=== PATIENT | male | born 1955 | race Caucasian/White ===

== ENCOUNTER 2018-08-11 13:33 | Observation (INO) ==
[2018-08-11] MEDS ORDERED: Naloxone 0.4 MG/ML INJ IVP PRN (17:14)
[2018-08-11] MEDS ORDERED: Acetaminophen 325 MG TABLET PO PRN (17:14)
[2018-08-11] MEDS ORDERED: traMADol 50 MG TABLET PO PRN (17:14)
[2018-08-11 17:35] LABS: Basophils # 0.1 K/mcL (0.0-0.2); Basophils % 1.1 %; Eosinophils # 0.4 K/mcL (0.0-0.6); Eosinophils % 4.9 %; Hematocrit 41.9 % (37.5-50.1); Hemoglobin 13.5 g/dL (12.9-16.9); Immature Granulocytes % 0.3 % (0-4); Lymphocytes # 1.8 K/mcL (0.6-4.6); Lymphocytes % 24.1 %; Mean Corpuscular HGB Conc 32.2 g/dL (31.6-35.5); Mean Corpuscular Hemoglobin 27.7 pg (28.0-33.3); Mean Platelet Volume 10.3 fL (9.4-12.4); Monocytes # 0.6 K/mcL (0.0-1.3); Monocytes % 8.4 %; Neutrophils # 4.6 K/mcL (1.6-8.9); Platelet Count 251 K/mcL (140-400); Red Blood Count 4.87 M/mcL (4.19-5.50); Red Cell Distribution Width 14.4 % (11.5-14.5); Segmented Neutrophils % 61.2 %
[2018-08-11] MEDS ORDERED: Ipratropium/Albuterol Neb 3 ML IH PRN (17:38)
--- NOTE | 2018-08-11 17:43 | Internal Med History&Physical ---
<TinoalirezabeboJose rollins - Last Filed: 08/11/18 18:17> Date of Encounter: 08/11/18 Time of Encounter: 16:30 Internal Medicine - H&P: HPI Chief complaint: CP Admitted From: Hospital to Hospital Transfer Plans for Post Hospital Care: Home History of present illness: Mr. Klein is a 63 year old male w/PMH of HTN, HLD, gout, GERD, and COPD presents from [facility] with chief complaint of chest pain. Patient reports began at 5 AM this morning while he was sleeping and presented as centralized chest pressure with radiation to bilateral shoulders. No aggravating factors. Pt. states nitro helped sx. Patient reports previous DE in 2008 with no stents placed. Patient states symptoms today are different from 2009 DE he has today's CP is pressure whereas 2009 sx was sharp and stabbing pain. Echocardiogram on 10/25/17 showed LVEF of 60%, normal LV chamber size and function, mild concentric left ventricular hypertrophy, sooner normal left ventricular diastolic dysfunction, unable to estimated RVSP due to lack of TR jet, and no significant valvular dysfunction. Pt. reports previous nuclear stress test was many years ago. Former smoker who smoked 1.5 PPD and quit 10 years ago. Patient reports SOB (pt. has COPD) but denies recent illness, fever , chills, nausea, vomiting, diaphoresis, changes in vision, headache, unusual bleeding, cough, chest congestion, abdominal pain, diarrhea, constipation, dizziness, lightheadedness, numbness, tingling, pre-syncope, or syncope. Past Med Surg Social Fam HX - Past Medical History Source: patient, old records reviewed Medical history: COPD, GERD, hyperlipidemia, hypertension, other (Gout) Psychiatric history: no psych history - Past Surgical History Additional surgical history: Cyst removed from back. Tonsillectomy. - Social History Smoking Status: Former smoker Packs per day: 1.5 PPD - Reports quitting 10 years ago Smokeless Tobacco Status: No Alcohol use: none Drug use: none Current living situation: Home, With Family Activity Level: Independent ambulation Recent Out of Country Travel Within the Last 8 Weeks: No Exposure or Possible Exposure to Illness During Travel: No - Family History Mother Race: Family Member Ethnicity: Non- Living Status: Age at : 61 Cause of : "Natural causes" Hx Family Cardiac Disorders: Yes (DE, Open heart surgery) Hx Family Endocrine Disorder: Yes (DM) Father History Unknown: Yes Race: Family Member Ethnicity: Non- Living Status: Brother Race: Family Member Ethnicity: Non- Living Status: Still Living Hx Family Medical Disorders: No Sister Race: Family Member Ethnicity: Non- Living Status: Still Living Hx Family Endocrine Disorder: Yes (DM) Hx Family HEENT Disorders: Yes (Glaucoma) Internal Medicine - H&P: Meds 3 Allergy/AdvReac Type Severity Reaction Status Date / Time acetaminophen [From Vicodin] Allergy Hives Verified 07/20/16 10:05 atorvastatin [From Lipitor] Allergy Rash Verified 07/20/16 10:05 codeine Allergy Hives Verified 07/20/16 10:05 diphenhydramine Allergy Difficulty Verified 07/20/16 10:05 [From Benadryl] Breathing hydrocodone [From Vicodin] Allergy Hives Verified 07/20/16 10:05 morphine Allergy Difficulty Verified 07/20/16 10:05 Breathing Penicillins Allergy Unconscious Verified 07/20/16 10:05 All Systems PM: A 10-system review of systems was performed and is negative for pertinent findings except as documented above in the HPI. - Constitutional Constitutional: no chills, no fever(s), no night sweats - EENT Eyes: no change in vision, no discharge, no pain, no photophobia Ears: no ear discharge, no ear pain, no tinnitus Nose, mouth and throat: no dysphagia, no nasal discharge, no neck pain, no sore throat - Breasts Breasts: as per HPI - Cardiovascular Cardiovascular ROS IM: as per HPI, chest pain, dyspnea, dyspnea on exertion, edema (Occasional bilateral pedal edema), no diaphoresis, no lightheadedness, no palpitations, no syncope - Respiratory Respiratory: as per HPI, dyspnea, dyspnea on exertion, no cough, no wheezing, no excessive phlegm production - Gastrointestinal Gastrointestinal: no abdominal pain, no diarrhea, no hematemesis, no hematochezia, no melena, no nausea, no vomiting - Genitourinary Genitourinary ROS male: as per HPI - Musculoskeletal Musculoskeletal ROS IM: no numbness, no tingling - Integumentary Integumentary IM: no rash, no unusual bruising - Neurological Neurological ROS: no confusion, no convulsions, no focal weakness, no numbness, no tingling, no tremor(s) - Psychiatric Psychiatric: as per HPI - Endocrine Endocrine IM: as per HPI - Hematologic/Lymphatic Hematologic/Lymphatic: no easy bruising - Allergic/Immunologic Allergic/Immunologic: as per HPI - Constitutional Vitals: Temp Pulse Resp BP Pulse Ox 97.9 F 60 17 146/88 97 08/11/18 16:47 08/11/18 16:47 08/11/18 16:47 08/11/18 16:47 08/11/18 16:47 General appearance: Present: cooperative, mild distress (CP that pt. rates 3/10) , A&O X 3, pleasant, obese, answers questions appropriately Exam: Pt. examined at bedside. Pt. resting comfortably in bed stating CP 3/10 w/ improvement from nitro patch. Reports SOB and hx of COPD. Pt. states he had DE in 2008 w/o stent placement. Last Echo in 09/2017. Previous stress test many years ago according to pt. Denies other sx or complaints at this time. VS: temp 97.9F, HR 60, RR 17, BP 146/88, SpO2 97% on 2L via NC. - Head Head exam: Present: atraumatic, normocephalic - Eye Eye exam: Present: PERRL, conjuntiva pink, sclera anicteric Pupils: Present: PERRL - ENT ENT exam: Present: normal exam - Neck Neck exam general surgery: Present: normal inspection, supple, trachea midline. Absent: lymphadenopathy - Respiratory Respiratory exam: Present: CTAB. Absent: accessory muscle use, rales, rhonchi, wheezes - Cardiovascular Cardiovascular exam: Present: RRR, +S1, +S2. Absent: diastolic murmur, gallop, rubs, systolic murmur - GI/Abdominal GI/Abdominal exam: Present: normal bowel sounds, soft, no peritoneal signs. Absent: distended, tenderness - Rectal Rectal exam: Present: deferred - Additional comments: exam deferred. - Extremities Exam Extremities exam: Present: warm, radial pulses palpable and symmetrical. Absent : calf tenderness, cyanotic, pedal edema - Back Exam Back exam: Present: normal inspection - Neurological Exam Neurological exam: Present: alert, CN II-XII intact, oriented X3, no focal deficits. Absent: pronater drift, facial droop, speech deficit - Psychiatric Psychiatric exam: Present: normal affect, normal mood - Skin Skin exam: Present: dry, intact Internal Med - H&P Results - Labs CBC & Chem 7: 08/11/18 16:47 08/11/18 16:47 Labs: Short CBC 08/11/18 Range/Units 16:47 WBC 7.5 (4.3-11.1) K/mcL Hgb 13.5 (12.9-16.9) g/dL Hct 41.9 (37.5-50.1) % Plt Count 251 (140-400) K/mcL Neutrophils # 4.6 (1.6-8.9) K/mcL - EKG Data EKG shows normal: sinus rhythm Rate: bradycardia - EKG Data Prior EKG available for review: no EKG comments: 08/11/18 17:49 EKG dated 08/11/18 at [facility] shows sinus bradycardia and otherwise normal ECG. - Assessment and plan (1) Chest pain Current Visit: Yes Status: Acute Assessment and plan: Acute CP that patient reports began at 5 AM this morning while he was sleeping and presented as centralized chest pressure with radiation to bilateral shoulders. No aggravating factors. Pt. states nitro helped sx. Patient reports previous DE in 2008 with no stents placed. Patient states symptoms today are different from 2009 DE he has today's CP is pressure whereas 2009 sx was sharp and stabbing pain. Echocardiogram on 10/25/17 showed LVEF of 60%, normal LV chamber size and function, mild concentric left ventricular hypertrophy, sooner normal left ventricular diastolic dysfunction, unable to estimated RVSP due to lack of TR jet, and no significant valvular dysfunction. Pt. reports previous nuclear stress test was many years ago. Former smoker who smoked 1.5 PPD and quit 10 years ago. Initial troponin <0.03. Will trend. ASA. 40 mg Lovastatin NOW. Nitro PRN. Continuous cardiac telemetry. Limited Echocardiogram d/t pt. having Echo in 10/12. Cardiac diet w/NPO at midnight for a.m. nuclear pharm stress test if troponins remain WNL. 1V portable CXR ordered. Continue pts. HTN medications and IP hydralazine w/parameters ordered. Consider Cardiology consult if limited Echo, troponins, and/or stress test results abnormal. Pt. discussed w/Dr. Dickinson who agrees w/plan of care. Pt. is high risk for cardiac event and further morbidity d/t previous DE in 2009, current sx of CP that began at rest, hx of tobacco abuse, familial hx; and risk factors of HTN, HLD, and obesity. Observation. Qualifiers: Chest pain type: other chest pain Qualified Code(s): R07.89 - Other chest pain; R07.8 - Other chest pain (2) SOB (shortness of breath) Current Visit: Yes Status: Acute Assessment and plan: Acute SOB w/CP sx. Continue pts. inhalers. Add DuoNebs Q6HR PRN. Supplemental O2 w/titration and SpO2 monitoring. (3) COPD (chronic obstructive pulmonary disease) Current Visit: Yes Status: Chronic Assessment and plan: Hx of chronic COPD. Pt. reports SOB w/CP sx. Continue pts. inhalers. Add DuoNebs Q6HR PRN. Supplemental O2 w/titration and SpO2 monitoring. Qualifiers: COPD type: emphysema Emphysema type: unspecified Qualified Code(s): J43.9 - Emphysema, unspecified (4) HTN (hypertension) Current Visit: Yes Status: Chronic Assessment and plan: Hx of chronic HTN. Monitor pt. and VS. Continue pts. PO HTN medications. IVP hydralazine ordered w/parameters for breakthrough HTN. Qualifiers: Hypertension type: essential hypertension Qualified Code(s): I10 - Essential (primary) hypertension (5) HLD (hyperlipidemia) Current Visit: Yes Status: Chronic Assessment and plan: Hx of chronic HLD. Lipid panel in a.m. labs. Continue pts. Lovastatin. Qualifiers: Hyperlipidemia type: pure hypercholesterolemia Qualified Code(s): E78.00 - Pure hypercholesterolemia, unspecified; E78.0 - Pure hypercholesterolemia (6) Gout Current Visit: Yes Status: Chronic Assessment and plan: Hx of chronic gout. Continue pts. Allopurinol. Qualifiers: Gout site: unspecified site Gout etiology: unspecified cause Chronicity: chronic Presence of tophus: without tophus Qualified Code(s): M1A.9XX0 - Chronic gout, unspecified, without tophus (tophi) (7) GERD (gastroesophageal reflux disease) Current Visit: Yes Status: Chronic Assessment and plan: Hx of chronic GERD. Continue pts. PO medication. IVP Zofran for N/V. Qualifiers: Esophagitis presence: esophagitis presence not specified Qualified Code(s) : K21.9 - Gastro-esophageal reflux disease without esophagitis (8) DVT prophylaxis Current Visit: Yes Status: Acute Assessment and plan: Heparin SQ Q8HR for DVT prophylaxis. Monitor pt. for signs of bleeding. (9) Previous myocardial infarction older than 8 weeks Current Visit: Yes Status: Resolved Assessment and plan: Hx of previous DE in 2008 w/o stent placement. Resolved. Pt. states current CP different from 2008 because 2008 was sharp/stabbing and today presents as pressure. Continuous cardiac telemetry. ASA therapy. Continue HTN and HLD medications. - Time Spent With Patient Total time spent is greater than 50% in coordination of care (as documented) at patient's floor/unit and/or counseling patient: Greater than 35 minutes <Anjel Dickinson - Last Filed: 08/12/18 15:13> Date of Encounter: 08/12/18 Internal Medicine - H&P: HPI History of present illness: Mr. Klein is a 63 year old male All Systems PM: A 10-system review of systems was performed and is negative for pertinent findings except as documented above in the HPI. - Constitutional Vitals: Temp Pulse Resp BP Pulse Ox 97.7 F 54 18 132/83 95 08/12/18 11:42 08/12/18 11:42 08/12/18 11:42 08/12/18 11:42 08/12/18 11:42 Internal Med - H&P Results - Labs CBC & Chem 7: 08/12/18 06:49 08/12/18 06:49 Labs: Short CBC 08/11/18 08/12/18 Range/Units 16:47 06:49 WBC 7.5 7.6 (4.3-11.1) K/mcL Hgb 13.5 14.2 (12.9-16.9) g/dL Hct 41.9 43.3 (37.5-50.1) % Plt Count 251 234 (140-400) K/mcL Neutrophils # 4.6 3.8 (1.6-8.9) K/mcL BMP 08/11/18 08/12/18 16:47 06:49 Sodium 138 138 Potassium 3.9 3.9 Chloride 106 105 Carbon Dioxide 22 L 27 BUN 23 22 Creatinine 0.92 0.94 Glucose 93 95 Calcium 9.3 9.1 Cardiac Enzymes 08/11/18 08/11/18 08/12/18 Range/Units 16:47 22:56 06:49 Troponin I < 0.03 < 0.03 < 0.03 (< 0.04) ng/mL Liver Function 08/11/18 08/12/18 Range/Units 16:47 06:49 Total Bilirubin 0.6 0.5 (0.3-1.0) mg/dL AST 15 13 (13-39) Units/L ALT 14 13 (7-52) Units/L Alkaline Phosphatase 57 54 (34-104) Units/L Albumin 4.3 4.0 (3.5-5.7) g/dL - Impressions ITS Impressions Chest X-Ray 08/11/18 17:18 IMPRESSION: No acute cardiopulmonary process. D/ / 08/11/2018 20:56:35 Britt Mcclellan MD / armaan Interpreting Provider: Britt Mcclellan MD Echocardiogram Limited Views 08/12/18 07:00 Impressions: LVEF 60%. Normal LV chamber size and function. Left Ventricular Wall Motion: Rest Echo Findings All wall segments showed normal motion. Findings: Study Quality * Technically adequate exam. ECG Findings * Normal sinus rhythm. Left Ventricle * LVEF 60%. * Normal LV chamber size and function. Right Ventricle * Normal right ventricular structure and function. Aorta * Normally sized aortic root. Pericardium * The pericardium appears normal. - Assessment and plan (1) Chest pain Current Visit: Yes Status: Acute Qualifiers: Chest pain type: other chest pain Qualified Code(s): R07.89 - Other chest pain; R07.8 - Other chest pain (2) SOB (shortness of breath) Current Visit: Yes Status: Resolved (3) HTN (hypertension) Current Visit: Yes Status: Chronic Qualifiers: Hypertension type: essential hypertension Qualified Code(s): I10 - Essential (primary) hypertension (4) HLD (hyperlipidemia) Current Visit: Yes Status: Chronic Qualifiers: Hyperlipidemia type: pure hypercholesterolemia Qualified Code(s): E78.00 - Pure hypercholesterolemia, unspecified; E78.0 - Pure hypercholesterolemia (5) Gout Current Visit: Yes Status: Chronic Qualifiers: Gout site: unspecified site Gout etiology: unspecified cause Chronicity: chronic Presence of tophus: without tophus Qualified Code(s): M1A.9XX0 - Chronic gout, unspecified, without tophus (tophi) (6) GERD (gastroesophageal reflux disease) Current Visit: Yes Status: Chronic Qualifiers: Esophagitis presence: esophagitis presence not specified Qualified Code(s) : K21.9 - Gastro-esophageal reflux disease without esophagitis (7) COPD (chronic obstructive pulmonary disease) Current Visit: Yes Status: Chronic Qualifiers: COPD type: emphysema Emphysema type: unspecified Qualified Code(s): J43.9 - Emphysema, unspecified (8) DVT prophylaxis Current Visit: Yes Status: Acute (9) Previous myocardial infarction older than 8 weeks Current Visit: Yes Status: Resolved - Time Spent With Patient Total time spent is greater than 50% in coordination of care (as documented) at patient's floor/unit and/or counseling patient: - Attending Attestation Seen and assessed. Continue management for chest pain. Agree with plan per [employer]
[2018-08-11] MEDS ORDERED: GI Cocktail 40 ML EACH PO ONE (17:52)
[2018-08-11 17:56] LABS: Troponin I < 0.03 ng/mL (< 0.04)
[2018-08-11] MEDS ORDERED: Ondansetron 4 MG/2 ML VIAL IVP PRN (17:56)
[2018-08-11 17:57] LABS: Alanine Aminotransferase 14 Units/L (7-52); Albumin 4.3 g/dL (3.5-5.7); Albumin/Globulin Ratio 1.8 (1.1-2.2); Alkaline Phosphatase 57 Units/L (34-104); Aspartate Amino Transferase 15 Units/L (13-39); BUN/Creatinine Ratio 25 (6-26); Bilirubin,Total 0.6 mg/dL (0.3-1.0); Blood Urea Nitrogen 23 mg/dL (8-23); Calcium 9.3 mg/dL (8.6-10.3); Carbon Dioxide 22 mEq/L (23-29); Chloride 106 mEq/L (98-107); Globulin 2.4 g/dL (2.4-3.5); Glucose 93 mg/dL (70-105); Osmolality,Calculated 289 (280-300); Potassium 3.9 mEq/L (3.5-5.1); Sodium 138 mEq/L (136-145); Total Protein 6.7 g/dL (6.4-8.9); eGFR For Non-African Americans > 60 (> 60)
[2018-08-11 18:19] LABS: Thyroid Stimulating Hormone 0.683 mcIU/mL (0.340-5.600)
[2018-08-11] MEDS ORDERED: *HR* OxyCODONE/APAP 5/325 TABLET PO PRN (18:35)
[2018-08-11] MEDS: Gabapentin 300 MG CAPSULE PO SCH (21:00)
[2018-08-11] MEDS: *HR* Heparin 5,000 UNIT/ML VIAL SQ SCH (21:00)
[2018-08-11] MEDS ORDERED: Budesonide/Formoterol 80/4.5 MDI IH SCH (21:00)
[2018-08-11] MEDS: Budesonide/Formoterol 160/4.5 1 PUFF INH IH SCH (22:31)
[2018-08-12] MEDS ORDERED: Ipratropium Neb 0.5 MG NEBULIZER IH SCH
[2018-08-12] MEDS: *HR* Heparin 5,000 UNIT/ML VIAL SQ SCH (05:41)
[2018-08-12] MEDS ORDERED: Regadenoson 0.4 MG/5 ML SYRINGE IVP ONE (05:51)
[2018-08-12 07:23] LABS: Basophils # 0.1 K/mcL (0.0-0.2); Basophils % 1.1 %; Eosinophils # 0.6 K/mcL (0.0-0.6); Eosinophils % 8.2 %; Hematocrit 43.3 % (37.5-50.1); Hemoglobin 14.2 g/dL (12.9-16.9); Immature Granulocytes % 0.3 % (0-4); Lymphocytes # 2.4 K/mcL (0.6-4.6); Lymphocytes % 31.7 %; Mean Corpuscular HGB Conc 32.8 g/dL (31.6-35.5); Mean Corpuscular Hemoglobin 28.5 pg (28.0-33.3); Mean Corpuscular Volume 86.9 fL (83.0-100.0); Mean Platelet Volume 10.5 fL (9.4-12.4); Monocytes # 0.7 K/mcL (0.0-1.3); Monocytes % 9.5 %; Neutrophils # 3.8 K/mcL (1.6-8.9); Platelet Count 234 K/mcL (140-400); Red Blood Count 4.98 M/mcL (4.19-5.50); Red Cell Distribution Width 14.3 % (11.5-14.5); Segmented Neutrophils % 49.2 %
[2018-08-12 07:33] LABS: Estimated Average Glucose 120 mg/dl; Hemoglobin A1C 5.8 %
[2018-08-12 07:46] LABS: Alanine Aminotransferase 13 Units/L (7-52); Albumin/Globulin Ratio 1.7 (1.1-2.2); Alkaline Phosphatase 54 Units/L (34-104); Aspartate Amino Transferase 13 Units/L (13-39); BUN/Creatinine Ratio 23 (6-26); Bilirubin,Total 0.5 mg/dL (0.3-1.0); Blood Urea Nitrogen 22 mg/dL (8-23); Calcium 9.1 mg/dL (8.6-10.3); Carbon Dioxide 27 mEq/L (23-29); Chloride 105 mEq/L (98-107); Chol/HDL Ratio 2.9 (0-4.9); Cholesterol 109 mg/dL (< 200); Globulin 2.4 g/dL (2.4-3.5); Glucose 95 mg/dL (70-105); HDL Cholesterol 37 mg/dL (40-59); LDL Cholesterol,Calculated 51 mg/dL (0-99); Osmolality,Calculated 289 (280-300); Potassium 3.9 mEq/L (3.5-5.1); Sodium 138 mEq/L (136-145); Total Protein 6.4 g/dL (6.4-8.9); Triglycerides 107 mg/dL (< 150); eGFR For Non-African Americans > 60 (> 60)
[2018-08-12] MEDS ORDERED: Aspirin Enteric Coated 81 MG Tablet PO SCH (09:00)
[2018-08-12] MEDS ORDERED: Loratadine 10 MG TABLET PO SCH ×2 (09:00)
[2018-08-12] MEDS ORDERED: Famotidine 20 MG TABLET PO SCH (09:00)
[2018-08-12] MEDS: Gabapentin 300 MG CAPSULE PO SCH (09:03)
[2018-08-12] MEDS: Budesonide/Formoterol 160/4.5 1 PUFF INH IH SCH (11:12)
[2018-08-12 11:48] VITALS: BP 132/83
--- NOTE | 2018-08-12 12:52 | Discharge Summary ---
Orders not resulted at time of discharge: Pending orders 08/11/18 17:19 EKG [ECG 12 lead ECG] [ECG] Routine 08/11/18 18:06 NM riley perf SPECT multi [NM] Routine 08/13/18 04:00 Complete Blood Count [HEME] AM 0400 Comprehensive Metabolic Panel AM 0400 08/14/18 04:00 Complete Blood Count [HEME] AM 0400 Comprehensive Metabolic Panel AM 0400 Date of Encounter: 08/12/18 Time of Encounter: 10:35 - Discharge Diagnosis (1) Chest pain Priority: Primary Status: Acute Assessment and Plan: Pt reports some intermittent left chest pain without radiation, described as dull, no associated symptoms, rates 1/10. Chest pain is not reproducible. He denies recent illness or injury. Limited echo done today shows LVEF of 60% with normal LV chamber size and function. Stress test showed a gated EF of 60% with some findings consistent with artifact , perfusion imaging was negative for ischemia or infarct. Troponins negative 3. TSH within normal limits. Lipid panel within normal limits. A1c is 5.8%. Chest x-ray showed no acute cardiopulmonary process. EKG is without ischemic changes. national secretary is trying to get patient a follow-up appointment with cardiology. Unclear etiology for chest pain. Likely chest wall pain. Follow-up with cardiology as scheduled. 08/11-Acute CP that patient reports began at 5 AM this morning while he was sleeping and presented as centralized chest pressure with radiation to bilateral shoulders. No aggravating factors. Pt. states nitro helped sx. Patient reports previous [place] in 2008 with no stents placed. Patient states symptoms today are different from 2009 [place] he has today's CP is pressure whereas 2009 sx was sharp and stabbing pain. Echocardiogram on 10/25/17 showed LVEF of 60%, normal LV chamber size and function, mild concentric left ventricular hypertrophy, sooner normal left ventricular diastolic dysfunction, unable to estimated RVSP due to lack of TR jet, and no significant valvular dysfunction. Pt. reports previous nuclear stress test was many years ago. Former smoker who smoked 1.5 PPD and quit 10 years ago. Initial troponin <0.03. Will trend. ASA. 40 mg Lovastatin NOW. Nitro PRN. Continuous cardiac telemetry. Limited Echocardiogram d/t pt. having Echo in 10/12. Cardiac diet w/NPO at midnight for a.m. nuclear pharm stress test if troponins remain WNL. 1V portable CXR ordered. Continue pts. HTN medications and IP hydralazine w/parameters ordered. Consider Cardiology consult if limited Echo, troponins, and/or stress test results abnormal. Pt. discussed w/Dr. Dickinson who agrees w/plan of care. Pt. is high risk for cardiac event and further morbidity d/t previous [place] in 2009, current sx of CP that began at rest, hx of tobacco abuse, familial hx; and risk factors of HTN, HLD, and obesity. Observation. Qualifiers: Chest pain type: other chest pain Qualified Code(s): R07.89 - Other chest pain; R07.8 - Other chest pain (2) SOB (shortness of breath) Priority: Secondary Status: Resolved Assessment and Plan: Resolved. Continue home inhalers. He is not requiring any supplemental oxygen. Lungs are clear. (3) HTN (hypertension) Priority: Secondary Status: Chronic Assessment and Plan: Chronic. Well controlled. Continue medications. Qualifiers: Hypertension type: essential hypertension Qualified Code(s): I10 - Essential (primary) hypertension (4) HLD (hyperlipidemia) Priority: Secondary Status: Chronic Assessment and Plan: Lipid panel within normal limits. Continue lovastatin. Qualifiers: Hyperlipidemia type: pure hypercholesterolemia Qualified Code(s): E78.00 - Pure hypercholesterolemia, unspecified; E78.0 - Pure hypercholesterolemia (5) Gout Priority: Secondary Status: Chronic Assessment and Plan: Chronic. Continue allopurinol home dose. Qualifiers: Gout site: unspecified site Gout etiology: unspecified cause Chronicity: chronic Presence of tophus: without tophus Qualified Code(s): M1A.9XX0 - Chronic gout, unspecified, without tophus (tophi) (6) GERD (gastroesophageal reflux disease) Priority: Secondary Status: Chronic Assessment and Plan: Chronic. Continue home medications. Qualifiers: Esophagitis presence: esophagitis presence not specified Qualified Code(s) : K21.9 - Gastro-esophageal reflux disease without esophagitis (7) COPD (chronic obstructive pulmonary disease) Priority: Secondary Status: Chronic Assessment and Plan: No acute exacerbation. Chest x-ray is negative. Continue home medications. Patient is not requiring supplemental oxygen. Lungs are clear and diminished throughout. Qualifiers: COPD type: emphysema Emphysema type: unspecified Qualified Code(s): J43.9 - Emphysema, unspecified (8) DVT prophylaxis Priority: Secondary Status: Acute Assessment and Plan: Heparin subcutaneous (9) Previous myocardial infarction older than 8 weeks Priority: Secondary Status: Resolved Assessment and Plan: Prior [place] 2008 without stents. Continue home medications. Hospital course: Please see assessment and plan for hospital course. Discharge discussed with: patient, nurse - Time Spent with Patient Total time spent providing and/or coordinating discharge services: Less than 30 minutes - Discharge Medications Home Medications: Albuterol Sulfate [Proair Hfa] 1 puff IH Q4H PRN 08/11/18 [History] Allopurinol [Zyloprim 300 MG] 300 mg PO DAILY 08/11/18 [History] Budesonide/Formoterol 80/4.5 [Symbicort 80/4.5] 2 puff IH BID 08/11/18 [History ] Cetirizine HCl [Zyrtec] 10 mg PO DAILY 08/11/18 [History] Gabapentin [Neurontin] 600 mg PO TID 08/11/18 [History] Ipratropium Neb [Atrovent Neb] 0.5 mg IH Q6HR 08/11/18 [History] Loratadine [Claritin] 10 mg PO DAILY 08/11/18 [History] Lovastatin 80 mg PO DAILY 08/11/18 [History] Metoprolol [Lopressor] 25 mg PO BID 08/11/18 [History] Montelukast [Singulair] 10 mg PO DAILY 08/11/18 [History] Niacin (24 HR) [Niaspan] 500 mg PO HS 08/11/18 [History] Omeprazole [PriLOSEC] 40 mg PO DAILY 08/11/18 [History] Oxycodone HCl/Acetaminophen [Percocet 5-325 mg Tablet] 1 each PO Q8H PRN [History] Ranitidine HCl [Zantac] 300 mg PO DAILY 08/11/18 [History] Allergies/Adverse Reactions: 3 Allergy/AdvReac Type Severity Reaction Status Date / Time acetaminophen [From Vicodin] Allergy Hives Verified 07/20/16 10:05 atorvastatin [From Lipitor] Allergy Rash Verified 07/20/16 10:05 codeine Allergy Hives Verified 07/20/16 10:05 diphenhydramine Allergy Difficulty Verified 07/20/16 10:05 [From Benadryl] Breathing hydrocodone [From Vicodin] Allergy Hives Verified 07/20/16 10:05 morphine Allergy Difficulty Verified 07/20/16 10:05 Breathing Penicillins Allergy Unconscious Verified 07/20/16 10:05 Date of admission: 08/11/18 15:24 Primary care physician: Bela Lau CNP Consults: 08/11/18 17:17 Consult to Certified Hand Therapist [CONS] Routine Reason for SW Consult: Please assess patient for possible home needs for post -discharge planning. Discharging clinician: Jessica Chatman Anticipated date of discharge: 08/12/18 - Constitutional Vitals: Temp Pulse Resp BP Pulse Ox 97.7 F 54 18 132/83 95 08/12/18 11:42 08/12/18 11:42 08/12/18 11:42 08/12/18 11:42 08/12/18 11:42 General appearance: Present: cooperative, mild distress (CP that pt. rates 3/10) , A&O X 3, pleasant, obese, answers questions appropriately Exam: General: Pt resting quietly on bed, no distress. Skin: pwd, no rashes, lesions, redness Neurological: Pt is alert and awake, oriented x 3, Speech is clear, PERRLA, EOMI , no nystagmus, no pronator drift. strength equal x 4 extremities HEENT: mucous mumbranes moist, no conjuctival pallor Neck: supple, no tracheal deviation, no lymphadenopathy, tenderness, no thyromegaly Heart: S1S2 heard without gallops, clicks, murmurs, no bradycardia or tachycardia, pt has no peripheral edema, pedal and radial pulses palpable bilaterally. Lungs: clear throughout without wheezing, rales, or ronchi, respirations are unlabored Abdomen: soft and non tender with bowel sound present, no hepatomegaly. Psych: Normal affect with good eye contact - Patient Status Disposition: Home, Self-Care Condition: Good Functional capacity at discharge: independent ambulation Overall status at discharge: patient is back to baseline - Discharge Instructions Follow Up With: Bela Lau CNP [Primary Care Provider] - Additional Instructions: Follow up with your PCP in the next 3-5 days for a recheck. Follow-up with cardiology as scheduled Take your medications as directed. Return to the ER as needed for any other problems or concerns, or if your symptoms return or worsen. Resume your normal medications and return to your normal diet and activties as tolerated. - Diet and Activity Activity: increase activity as tolerated Diet: advance to your usual diet
== END 2018-08-12 15:58 | disposition home or self-care (01) ==
LOC: 3BNU
PROVIDERS: ADMIT Student in an Organized Health Care Education/Training Program; ATTEND Student in an Organized Health Care Education/Training Program

== ENCOUNTER 2019-01-01 06:07 | Inpatient (IN) ==
[2019-01-01] MEDS ORDERED: Albuterol 2.5 MG/3 ML NEBULIZER IH ONE (06:32)
[2019-01-01] MEDS ORDERED: Clindamycin 900 MG/50 ML 900 MG/50 ML IV.SOLN IVPB ONE (06:32)
[2019-01-01] MEDS ORDERED: Ringers Solution, Lactated 1,000 ML IVC SCH ×2 (06:45→11:21)
[2019-01-01] MEDS ORDERED: ROPIVACAINE HCL/PF 0.5% 30 ML VIAL ONE (07:08)
[2019-01-01] MEDS ORDERED: Bupivacaine/Clonidine Syringe 1 EACH SYRINGE ONE (07:08)
[2019-01-01] MEDS ORDERED: Lidocaine -MPF 2% 2 ML VIAL ONE (07:09)
[2019-01-01] MEDS ORDERED: Lidocaine -MPF 4% 5 ML AMPUL ONE (07:09)
[2019-01-01] MEDS ORDERED: *HR* Rocuronium Bromide 50 MG/5 ML VIAL ONE (07:09)
[2019-01-01] MEDS ORDERED: *HR* Succinylcholine 200 MG/10 ML VIAL IVP ONE (07:09)
[2019-01-01] MEDS ORDERED: *HR* Propofol 200 MG/20 ML VIAL IVP ONE (07:10)
[2019-01-01] MEDS ORDERED: *HR* FentaNYL (PF) 100 MCG/2 ML VIAL ONE (07:10)
[2019-01-01] MEDS ORDERED: *HR* Midazolam HCl 2 MG/2 ML VIAL ONE (07:10)
[2019-01-01] MEDS ORDERED: Dexamethasone 4 MG/ML VIAL ONE (07:12)
[2019-01-01] MEDS ORDERED: Ondansetron 4 MG/2 ML VIAL ONE (07:12)
[2019-01-01] MEDS ORDERED: Ethanol\\Acetic Acid\\Na Ace\\Ben 1,000 ML IRRIG.SOLN IR ONE (07:15)
--- NOTE | 2019-01-01 07:17 | History & Physical Report ---
Date of Encounter: 01/01/19 Time of Encounter: 07:17 24 Hour HP Update - Instructions Instructions: If the History and Physical is less than 30 days old and was completed prior to A.M. admission and or procedure and has NOT been updated on calendar day of procedure please complete this update prior to performing procedure. - Update Patient reports changes in Medical Condition: No Changes in examination, assessment, or condition: No Changes in Medication: No Preop tests/diagnostics Reviewed: Yes Surgery Remains Indicated: Yes Consent for Planned Operative Procedure(s) Verified: Yes
--- NOTE | 2019-01-01 07:22 | Anesthesia Evaluation PreOp ---
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 Other Medical History: GERD Anesthesia History: Past Anesthesia (no prior GA) Alcohol Use: none Drug use: none Medications and Allergies Allopurinol [Zyloprim 300 MG] 300 mg PO DAILY 08/11/18 [History] Budesonide/Formoterol 80/4.5 [Symbicort 80/4.5] 2 puff IH BID 08/11/18 [History] Cetirizine HCl [Zyrtec] 10 mg PO DAILY 08/11/18 [History] Gabapentin [Neurontin] 600 mg PO TID 08/11/18 [History] Loratadine [Claritin] 10 mg PO DAILY 08/11/18 [History] Lovastatin 80 mg PO DAILY 08/11/18 [History] Metoprolol [Lopressor] 25 mg PO BID 08/11/18 [History] Montelukast [Singulair] 10 mg PO DAILY 08/11/18 [History] Niacin (24 HR) [Niaspan] 500 mg PO HS 08/11/18 [History] Omeprazole [PriLOSEC] 40 mg PO DAILY 08/11/18 [History] Oxycodone HCl/Acetaminophen [Percocet 5-325 mg Tablet] 1 each PO Q8H PRN [History] Albuterol Sulfate [Proair Respiclick] 90 mcg IH Q4H PRN 09/20/18 [History] Aspirin [Lo-Dose Aspirin EC] 81 mg PO DAILY 09/20/18 [History] Allergy/AdvReac Type Severity Reaction Status Date / Time acetaminophen [From Vicodin] Allergy Hives Verified 12/18/18 10:01 atorvastatin [From Lipitor] Allergy Rash Verified 12/18/18 10:01 codeine Allergy Hives Verified 12/18/18 10:01 diphenhydramine Allergy Difficulty Verified 12/18/18 10:01 [From Benadryl] Breathing hydrocodone [From Vicodin] Allergy Hives Verified 12/18/18 10:01 morphine Allergy Difficulty Verified 12/18/18 10:01 Breathing Penicillins Allergy Unconscious Verified 12/18/18 10:01 - Meds/Allergy Pre-op Review Medications Reviewed: Yes Allergies Reviewed: Yes Beta Blockers on Current Med List: Yes If Beta Blockers taken, Date/Time (Last Dose taken): 01/01/2019 at 0230 Anesthesia Results - Labs Laboratory Tests 12/18/18 12/18/18 12/18/18 10:30 10:30 10:30 WBC 7.1 Hgb 14.3 Hct 45.3 Plt Count 231 PT 9.9 INR 0.9 APTT 29.0 Sodium 137 Potassium 4.2 BUN 22 Creatinine 1.26 - Imaging EKG: report reviewed (09/04/2018 sinus bradycardia, possible lateral infarct) Additional studies: 09/20/2018 LEFT HEART CATH Indications: chest pain Impressions: There is mild one vessel coronary artery disease. Recommendations: Aggressive risk factor modification. 08/12/2018 Stress Impression: Pharmacologic stress ECG is negative for ischemia at level of heart rate achieved. Gated EF = 68%. Medium sized, mild intensity, fixed perfusion defect involving the apical inferior, apical septal, apical lateral, and apex segments with normal wall motion. These findings are most consistent with artifact. Perfusion imaging was negative for ischemia or infarct. 08/12/2018 Limited Echo Impressions: LVEF 60%. Normal LV chamber size and function. 10/25/2017 Echo Impressions: LVEF 60%. Normal LV chamber size and function. Mild concentric left ventricular hypertrophy. Pseudonormal left ventricular diastolic dysfunction. Normal right ventricular structure and function. Unable to estimate RVSP due to lack of TR jet. No significant valvular dysfunction. 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
[2019-01-01] MEDS ORDERED: EPHEDrine 50 MG/ML VIAL ONE (08:07)
--- NOTE | 2019-01-01 09:48 | Anesthesia Procedures ---
Date of Encounter: 01/01/19 Time of Encounter: 07:35 Procedures: Anesthesia - Nerve Block Procedure Date: 01/01/19 Time: 07:40 Checklist: Correct Patient Identifier, Correct procedure, History checked Correct side: Right Blood Thinner: No Monitor Applied: EKG, BP, Pulse Oximetry Supplemental Oxygen via Nasal Cannula (L/min): 3 Sedation: Versed (mg): 2 Sedation: Fentanyl (mcg): 100 Indication: Post Op Analgesia Pre-op Neuro Deficits: No Block Type: Supraclavicular Catheter placed: No Sterile Technique: Yes Ultrasound used: Yes Anatomy identified: Yes Visual spread of Local: Yes Neuro Stimulation: No Blood on Needle Aspiration: No Smooth Injection of Local: Yes Pain with Injection of Local: No Prep: Chlorhexadine Needle: 22 x 50 mm Stimuplex Volume (cc): 30 Complications: None/effective block
--- NOTE | 2019-01-01 10:20 | Discharge Summary ---
Outpatient Proc Discharge Plan - Plan Additional Instructions: DISCHARGE INSTRUCTIONS Dr. De La Vega Shoulder Replacement Wound Care -Keep wound / incision area clean and dry. -Keep the clear dressing on until follow up. -No baths or swimming until otherwise instructed. -Keep the wound dry until follow up. No submerging the wound under standing water until cleared by your physician (no baths, hot tubs, swimming pools, etc). Sponge baths are the best way to perform personal hygiene while at the same time protecting the wound from moisture. -No scrubbing the wound. You may "pad dry" the wound, but do not rub, as this may open up he wound and pre-dispose to wound infection. -Do not apply lotions or creams to incision site, unless instructed otherwise. -Observe for redness, swelling, or drainage. Please call the clinic immediately if you have fevers, chills with warmth/redness surrounding wound site or if you notice pus drainage from the wound site Activity -Continue the sling and come out for exercises as instructed by the physical therapist. Further therapy instructions will be given at your first follow up appointment. -No driving while on narcotic pain medication. Discharge Pain Medications -You will be given a prescription for pain medication. Wean off as tolerated. Do not wait to take the pain medication until the pain is severe, as it will be difficult to "catch up" once this occurs. The pain medication usually reaches its full effect ~1 hour after ingesting. -Your prescribed pain medication may contain Tylenol. You must be careful not to exceed 4,000 mg (4 g) of Tylenol (or generic equivalent), from all sources, within a single 24-hour period. -Some common side effects of the narcotic pain medications (Percocet, Oxycodone, Vicodin, etc) include nausea and itching. Benadryl is a great over the counter medication that helps calm your stomach, decreases your anxiety levels, and min imizes the itching. You can easily purchase this at your local pharmacy as an [id number] medication. Please abide by the instructions as printed on t- he bottle. 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 Home Medications: Allopurinol [Zyloprim 300 MG] 300 mg PO HS 08/11/18 [History] Loratadine [Claritin] 10 mg PO DAILY 08/11/18 [History] Lovastatin 80 mg PO DAILY 08/11/18 [History] Metoprolol [Lopressor] 25 mg PO BID 08/11/18 [History] Montelukast [Singulair] 10 mg PO DAILY 08/11/18 [History] Niacin (24 HR) [Niaspan] 500 mg PO HS 08/11/18 [History] Omeprazole [PriLOSEC] 40 mg PO DAILY 08/11/18 [History] Oxycodone HCl/Acetaminophen [Percocet 5-325 mg Tablet] 1 each PO Q8H PRN 08/11/18 [History] Albuterol Sulfate [Proair Respiclick] 2 puff IH Q4H PRN 09/20/18 [History] Aspirin [Lo-Dose Aspirin EC] 81 mg PO DAILY 09/20/18 [History] Fluticasone Propionate Nasal [Flonase] 1 spr NS DAILY 01/01/19 [History] Gabapentin 600 mg PO TID 01/01/19 [History] Ipratropium/Albuterol Sulfate [Iprat-Albut 0.5-3(2.5) mg/3 ml] 3 ml IH Q6H PRN 01/01/19 [History] LORazepam [Ativan] 0.5 mg PO BID 01/01/19 [History] LORazepam [Ativan] 1 mg PO HS 01/01/19 [History] Ranitidine HCl [Zantac] 300 mg PO HS 01/01/19 [History]
--- NOTE | 2019-01-01 10:38 | Anesthesia Evaluation Post Op ---
Date of Encounter: 01/01/19 Time of Encounter: 10:37 - Vital Signs Vital Signs: Vital Signs/O2 Sat, Most Current Temp Pulse Resp BP Pulse Ox 98.1 F 65 18 121/84 93 01/01/19 07:24 01/01/19 07:46 01/01/19 07:46 01/01/19 07:46 01/01/19 07:46 - Lungs Lungs: Clear Ascult./Percussion - Airway Airway: Non-obstructed - Cardiovascular Regular Rate - Mental Status Mental Status: Alert & Oriented, Answers Appropriately - Pain Pain Scale: 0 Pain Scale used: Numeric (1 - 10) - Nausea Vomiting Nausea Vomiting: Not Present - Hydration Hydration: Ice chips, Has not voided Notes: 01/01/19 10:37 pt denies complaints - Discharge PostOp Status: Transfer Patient to floor
[2019-01-01] MEDS ORDERED: Temazepam 15 MG CAPSULE PO PRN (11:21)
[2019-01-01] MEDS ORDERED: *HR* OxyCODONE/APAP 5/325 TABLET PO PRN (11:21)
[2019-01-01] MEDS ORDERED: Sennosides 8.6 MG TABLET PO PRN (11:21)
[2019-01-01] MEDS ORDERED: Ondansetron 4 MG/2 ML VIAL IVP PRN (11:21)
[2019-01-01] MEDS ORDERED: Ipratropium/Albuterol Neb 3 ML IH PRN (11:21)
[2019-01-01] MEDS ORDERED: traMADol 50 MG TABLET PO PRN (11:21)
[2019-01-01] MEDS ORDERED: Naloxone 0.4 MG/ML INJ IVP PRN (11:21)
[2019-01-01] MEDS ORDERED: MOM Conc 10 ML UD.LIQ PO PRN (11:21)
--- NOTE | 2019-01-01 13:21 | Orthopedic Operative Note ---
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 He has a partial thickness rotator cuff tear on MRI with tendinopathy, without a visible full thickness component. Attempts at non-operative management with anti-inflammatories, activity modification, and intraarticular corticosteroid injection have not relieved his pain. After discussing the pros and cons of continued non-operative vs operative intervention, due to his continued pain and loss of function, the patient has elected for a right total shoulder vs reverse shoulder replacement. The risks and benefits of the procedure were fully explained to the patient. These risks include, but are not limited to, the risk of infection, neurovascular injury, loosening of the implants, continued pain and stiffness of the shoulder, need for further surgery, DVT, PE, loss of limb and loss of life. We did discuss that unless there was an unfixable rotator cuff tear we would proceed with anatomic total shoulder. The patient did understand all of these risks and wishes to proceed. Informed consent was then obtained. Operative procedure: The right shoulder was marked and the patient was brought back to the OR suite by the anesthesia staff after regional anesthetic was administered. The patient was then placed supine on the operating table and all bony prominences were padded. The anesthesiologist then performed successful general anesthetic for the remainder of the case. The head, neck and airway were secured and protected by anesthesia. The bed was elevated about 30 degrees. The right upper extremity was then prepped and draped in the normal sterile orthopedic fashion and placed in the Trimano arm samuels. Preoperative antibiotics were then given prior to incision. A timeout was performed confirming the correct patient, site and side, procedure to be performed and any allergies. All were in agreement and we did proceed. A standard deltopectoral approach was performed. We dissected down through the skin coagulating any bleeders were encountered. The cephalic vein was then identified and taken laterally with the deltoid. Adhesions were cleared from underneath the deltoid and a brown retractor was placed. The interval between the deltoid and pectoralis was then developed and kolbel retractor was placed. A Darrach retractor was then placed under the acromion. The biceps tendon was exposed and identified, and then released proximally. Soft tissue tenodesis of the remaining biceps was then performed. The lateral border of the conjoined tendon was then identified and a subscapularis peel was then performed off its insertion on the lesser tuberosity. The subscapularis was tagged for later repair and was released from the rotator interval down the anterior aspect of the humerus. The capsule was then released from the anterior aspect of the humerus around inferiorly to the posterior aspect of the humerus. The humerus was subluxed anteriorly and osteophytes were removed, there were grade IV changes to the humeral head with exposed bone. There was tendinopathy of the supraspinatus but there was no full thickness tear noted. A humeral osteotomy was then performed in 30 degrees of retroversion using a guide, and a protector plate was placed. Attention was then turned to the glenoid. The humerus was subluxed posteriorly and retractors were placed on the anterior and posterior aspects of the glenoid. A 360 degree release of the subscapularis was performed, and the axillary nerve was palpated and protected throughout the case. Labral debridement was then performed. There was significant chondral wear on the glenoid with exposed bone and significant retroversion based on preoperative templating. The glenoid was sized to a size small and a central guide pin was placed in the appropriate position on the glenoid. The paleo glenoid was reamed first, followed by the jalen glenoid for a 25 degree wedge component in accordance with the perform plus system. The central drill hole and peripheral drill holes were then drilled. Trial was placed to ensure full seating of the component. Once satisfied with the trial component, peripheral peg holes were dried with Gelfoam soaked in thrombin, and a Shaniqua syringe was used to inject cement into the peripheral peg holes. The final glenoid component was seated, with bone graft placed around the central peg. The glenoid was held in place until the cement hardened. Any excess cement was removed. Attention was turned back to the humerus. The humerus was subluxed back anteriorly and a central pin was placed. The humerus was then reamed circumferentially. The center hole was then drilled and the fins reamed to accomodate the nucleus implant. Humeral head trials were then placed until the most appropriate size was identified. The trial size 48x18 mm head was tested and had excellent range of motion, and was able to be subluxed posteriorly 50% from the joint without dislocation. Stability was verified. The trials were removed and drill holes were then placed at the lesser tuberosity and 4 #2 fiberwires were placed through the drill holes for the subscapularis peel repai r, with three of the sutures passing through the component as well as bone. The permanent component was inserted, and the shoulder was reduced. Again the shoulder was taken through range of motion and there was excellent range of motion and stability. The wound was then copiously irrigated with irricept, bactisure and normal saline and the subscapularis was meticulously repaired with #2 FiberWire in a Frank-Andrés configuration. The subscapularis repair moved well as a unit and was stable. The deltopectoral interval was tagged with 2-0 surgilon, and the incision was closed with 2-0 stratafix deep and a running 3-0 stratafix subcuticular. Sterile dressing was placed, the arm was placed in a sling and the patient was taken to the PACU in stable condition. There were no complications during the case. Post op plan: The patient will go into the TSA protocol with subscapularis precautions. There was significant posterior wear on the glenoid. The glenoid size was evaluated and a central guide pin was placed in the appropriate position on the glenoid. The neoglenoid was reamed first, followed by the paleo glenoid at 25 degrees to accomodate the wedge implant. The peripheral holes were then drilled, then the central hole was drilled. Trial was placed to ensure full seating of the component. TOnce satisfied with the trial component, peripheral peg holes were dried with Gelfoam soaked in thrombin, and a Shaniqua syringe was used to inject cement into the peripheral peg holes. The final glenoid component was seated, with bone graft placed around the central peg. The glenoid was held in place until the cement hardened. Any excess cement was removed. Was there an optometrist assistant present: No Estimated blood loss (cc): 100
[2019-01-01] MEDS: Clindamycin 900 MG/50 ML 900 MG/50 ML IV.SOLN IVPB SCH ×2 (15:05→23:20)
[2019-01-01] MEDS: Gabapentin 300 MG CAPSULE PO SCH ×2 (15:05→21:15)
[2019-01-01] MEDS: *HR* LORazepam 1 MG TABLET PO SCH (15:05)
[2019-01-01] MEDS ORDERED: Niacin (24 HR) 500 MG TAB.ER.24H PO SCH (21:00)
[2019-01-01] MEDS ORDERED: *HR* LORazepam 1 MG TABLET PO SCH (21:00)
[2019-01-01] MEDS ORDERED: Famotidine 20 MG TABLET PO SCH (21:00)
[2019-01-02] MEDS: *HR* OxyCODONE Immed Rel 5 MG TABLET PO PRN ×3 (05:27→14:39)
[2019-01-02 06:07] LABS: Hematocrit 41.7 % (37.5-50.1); Hemoglobin 13.7 g/dL (12.9-16.9)
[2019-01-02 06:28] LABS: BUN/Creatinine Ratio 18 (6-26); Blood Urea Nitrogen 17 mg/dL (8-23); Calcium 9.5 mg/dL (8.6-10.3); Carbon Dioxide 28 mEq/L (23-29); Chloride 104 mEq/L (98-107); Glucose 120 mg/dL (70-105); Osmolality,Calculated 291 (280-300); Potassium 4.2 mEq/L (3.5-5.1); Sodium 139 mEq/L (136-145); eGFR For Non-African Americans > 60 (> 60)
[2019-01-02] MEDS: Ketorolac 15 MG/ML VIAL IVP PRN ×2 (08:38→15:54)
[2019-01-02] MEDS: Gabapentin 300 MG CAPSULE PO SCH ×2 (08:43→14:39)
[2019-01-02] MEDS: *HR* LORazepam 1 MG TABLET PO SCH (08:43)
[2019-01-02] MEDS ORDERED: Loratadine 10 MG TABLET PO SCH (09:00)
[2019-01-02] MEDS ORDERED: LOVASTATIN 80 MG PO SCH (09:00)
[2019-01-02] MEDS ORDERED: Aspirin Enteric Coated 81 MG Tablet PO SCH (09:00)
[2019-01-02] MEDS: Fluticasone Propionate Nasal 50 MCG/SPRAY BOTTLE NS SCH ×2 (10:06→12:35)
[2019-01-02] MEDS ORDERED: *HR* Enoxaparin 30 MG/0.3 ML SYRINGE SQ SCH (10:22)
[2019-01-02 14:54] VITALS: BP 128/86
== END 2019-01-02 17:00 | disposition home health service (06) | DRG 322 ==
LOC: SAMDAY 06:07 → 3NENU 11:20
PROVIDERS: ADMIT Orthopaedic Surgery Sports Medicine; ATTEND Orthopaedic Surgery Sports Medicine